=== PATIENT | female | born 1940 | race African-American/Black ===

== ENCOUNTER 2018-05-28 13:40 | Inpatient (IN) | payer MEDICARE, MEDICAID ==
[~2018-05-28] VITALS: Ht 167.6 cm; Wt 59.0 kg
[2018-05-28] MEDS ORDERED: ATEN-42 PO (13:46)
[2018-05-28] MEDS ORDERED: LEVO25TA7 PO (13:46)
[2018-05-28] MEDS ORDERED: SODIUM CHLORIDE 0.9% 1,000 ML IV ONE (14:51)
[2018-05-28 15:43] LABS: BASOPHILS % 0.3 % (0.0-2.0); EOSINOPHILS % 0.1 % (0.0-5.0); HEMATOCRIT. 26.9 % (36.0-48.0); HEMOGLOBIN. 9.2 g/dL (12.0-16.0); LYMPHOCYTES % 11.4 % (20.0-50.0); MEAN CORPUSCULAR VOLUME 96.3 fL (81.0-99.0); MONOCYTES % 6.3 % (2.0-8.0); NEUTROPHILS % 81.9 % (40.0-76.0); RED CELL DISTRIBUTION WIDTH 26.2 % (11.6-14.6)
[2018-05-28 15:48] LABS: PROTHROMBIN TIME 10.1 sec (9.1-11.1)
[2018-05-28 15:49] LABS: CHLORIDE 98 mEq/L (98-107)
[2018-05-28 16:09] LABS: MEAN PLATELET VOLUME 8.1 fl (7.4-10.4); PLATELET 42 x1000/uL (130-400)
[2018-05-28 16:10] LABS: PLATELET ESTIMATE MARKEDLY DECREASED
[2018-05-28 19:03] LABS: CLARITY URINE CLEAR (CLEAR); COLOR URINE YELLOW (YELLOW); KETONES URINE 1+ (NEGATIVE); LEUKOCYTE ESTERASE URINE NEGATIVE (NEGATIVE); NITRITE URINE NEGATIVE (NEGATIVE); OCCULT BLOOD URINE TRACE (NEGATIVE); PROTEIN URINE 2+ (NEGATIVE); SPECIFIC GRAVITY URINE 1.008 (1.005-1.030); UROBILINOGEN URINE 0.2 E.U./dL (0.2-1.0)
[2018-05-28] MEDS ORDERED: MAGNESIUM/ALUMINUM HYDROXIDE/SIMETHICONE 30ML UDC PO STA (19:15)
[2018-05-28] MEDS ORDERED: HYDRALAZINE 20MG/ML VIAL IV ONE (19:15)
[2018-05-28] MEDS ORDERED: FAMOTIDINE 20MG/2ML VIAL IV ONE (19:15)
[2018-05-28] MEDS ORDERED: FENTANYL CITRATE/PF 50MCG/ML 2ML VIAL IV ONE (19:15)
[2018-05-28 20:45] VITALS: BP 194/93
[2018-05-28] MEDS ORDERED: DOCUSATE SODIUM 100MG CAPSULE PO PRN (21:48)
[2018-05-28] MEDS ORDERED: ONDANSETRON HCL 4MG/2ML INJ IV PRN (21:48)
[2018-05-28] MEDS ORDERED: ACETAMINOPHEN 325MG TABLET PO PRN (21:48)
[2018-05-28] MEDS ORDERED: GUAIFENESIN 200MG/10ML SUGAR FREE UDC PO PRN (21:49)
[2018-05-28] MEDS ORDERED: DEXT 5%/0.45% NACL 1000ML 1,000 ML IV SCH (23:23)
[2018-05-29] MEDS ORDERED: LEVOFLOXACIN 500MG PREMIX 100 ML IV SCH ×2 (01:00)
[2018-05-29] MEDS ORDERED: LEVOTHYROXINE SODIUM 50MCG TABLET PO SCH (06:45)
[2018-05-29] MEDS ORDERED: AMLODIPINE 10MG TABLET PO SCH (09:00)
[2018-05-30] MEDS ORDERED: LEVOFLOXACIN 250MG PREMIX 50 ML IV SCH (01:00)
== END 2018-05-28 23:29 | disposition left against medical advice (07) | DRG 644 ==
LOC: ER 13:40 → 5WST 17:17 → SUPCPDRO 19:18 → ENRESERV 19:42
PROVIDERS: ADMIT Hospitalist; ATTEND Hospitalist
DX: E03.9 Hypothyroidism, unspecified (principal); C34.90 Malignant neoplasm of unspecified part of unspecified bronchus or lung; J91.0 Malignant pleural effusion; J98.11 Atelectasis; E05.90 Thyrotoxicosis, unspecified without thyrotoxic crisis or storm; R62.7 Adult failure to thrive; D69.6 Thrombocytopenia, unspecified; Z53.21 Procedure and treatment not carried out due to patient leaving prior to being seen by health care provider; I10 Essential (primary) hypertension; Z92.21 Personal history of antineoplastic chemotherapy; Z88.8 Allergy status to other drugs, medicaments and biological substances; Z79.899 Other long term (current) drug therapy
CPT/HCPCS: 36415; 70450; 71045; 80053; 81003; 83605; 84439; 84443; 84484; 85025; 85610; 93005; 96374; 96375; 99285; J0360; J1956; J3010; J3490; J7030